=== PATIENT | male | born 1980 | race African-American/Black ===

== ENCOUNTER 2019-06-15 14:46 | Emergency (ER) | payer SELFPAY ==
--- NOTE | 2019-06-15 16:27 | ER Document Report ---
ED Medical Screen (RME) - General Chief Complaint: Alcohol Withdrawl Stated Complaint: DETOX ETOH Time Seen by Provider: 06/15/19 16:22 - HPI Notes: 06/15/19 16:23 39-year-old male to the emergency department with complaints of wanting alcohol detox. He states that he has been drinking for 20+ years. He states that he drinks 15 beers a day. He states he has had about 45 ounces today already. His last drink was 5 hours ago. He states that when he tries to detox he will have seizures. He states the last time he tried to detox was about a year and a half ago. He denies any tobacco use. He does smoke marijuana. He denies any other illicit drug use. He denies any chest pain, shortness of breath, tremors currently, fever, chills, nausea, vomiting. Reports chronic diarrhea and states that he has a cough. Denies SI, HI, or hallucinations. I have performed a medical screening exam on this patient and placed initial orders. Will await bed for patient and have mainside provider further manage and disposition. - Related Data Allergies/Adverse Reactions: lactose Allergy (Verified 06/15/19 14:51) Past Medical History - Social History Chew tobacco use (# tins/day): No Frequency of alcohol use: Heavy Drug Abuse: Marijuana Pulmonary Medical History: Reports: Hx Asthma, Hx COPD Renal/ Medical History: Denies: Hx Peritoneal Dialysis Physical Exam - Vital signs Vitals: Temp Pulse Resp BP Pulse Ox 98.4 F 77 16 135/82 H 95 06/15/19 15:00 06/15/19 15:00 06/15/19 15:00 06/15/19 15:00 06/15/19 15:00 Interpretation: Normal - General General appearance: Other - chronic ill appearing In distress: None Notes: NOT TREMULOUS. - Respiratory Respiratory status: No respiratory distress Chest status: Nontender Breath sounds: Normal Chest palpation: Normal - Cardiovascular Rhythm: Regular Heart sounds: Normal auscultation Murmur: No Course - Vital Signs Vital signs: Temp Pulse Resp BP Pulse Ox 98.4 F 77 16 135/82 H 95 06/15/19 15:00 06/15/19 15:00 06/15/19 15:00 06/15/19 15:00 06/15/19 15:00
[2019-06-15 17:06] LABS: ABSOLUTE EOSINOPHILS # (AUTO) 0.7 10^3/uL (0.0-0.6); ABSOLUTE LYMPHOCYTES (AUTO) 1.5 10^3/uL (0.5-4.7); ABSOLUTE MONOCYTES (AUTO) 0.6 10^3/uL (0.1-1.4); ABSOLUTE NEUT (AUTO) 3.6 10^3/uL (1.7-8.2); BASOPHILS % (AUTO) 0.6 % (0-2); EOSINOPHILS % (AUTO) 10.3 % (0-6); HEMATOCRIT 44.1 % (37.9-51.0); LYMPHOCYTES % (AUTO) 23.7 % (13-45); MEAN CORPUSCULAR HEMOGLOBIN 31.8 pg (27.0-33.4); MEAN CORPUSCULAR HGB CONC 33.9 g/dL (32.0-36.0); MEAN CORPUSCULAR VOLUME 94 fl (80-97); PLATELET COUNT 239 10^3/uL (150-450); RED CELL DISTRIBUTION WIDTH 13.5 % (11.5-14.0); SEGMENTED NEUTROPHILS % (AUTO) 56.4 % (42-78); TOTAL CELLS COUNTED % (AUTO) 100 %; WHITE BLOOD COUNT 6.3 10^3/uL (4.0-10.5)
--- NOTE | 2019-06-15 17:14 | RADIOLOGY REPORT (SQ) ---
EXAM DESCRIPTION: CHEST 2 VIEWS COMPLETED DATE/TIME: 06/15/2019 4:54 pm REASON FOR STUDY: chronic cough COMPARISON: None. NUMBER OF VIEWS: Two view. TECHNIQUE: Frontal and lateral radiographic views of the chest acquired. LIMITATIONS: None. FINDINGS: LUNGS AND PLEURA: No opacities, masses or pneumothorax. No pleural effusion. Attenuated bl ood vessels and flattened vinicius-diaphragms. MEDIASTINUM AND HILAR STRUCTURES: No masses. No contour abnormalities. HEART AND VASCULAR STRUCTURES: Heart normal in size and contour. No evidence for failure. BONES: Scoliosis convex right thoracolumbar. HARDWARE: None in the chest. OTHER: No other significant finding. IMPRESSION: COPD. NO ACUTE RADIOGRAPHIC FINDING IN THE CHEST. TECHNICAL DOCUMENTATION: JOB ID: [id number] [employer]- All Rights Reserved Reading location - IP/workstation name: [email or web address]
[2019-06-15 17:21] LABS: ALANINE AMINOTRANSFERASE 151 U/L (21-72); ALBUMIN 5.6 g/dL (3.5-5.0); ALCOHOL 197 mg/dL (NONE DETECTED); ALKALINE PHOSPHATASE 118 U/L (38-126); ANION GAP 16 (5-19); ASPARTATE AMINO TRANSFERASE 251 U/L (17-59); BILIRUBIN,DIRECT 0.3 mg/dL (0.0-0.4); BILIRUBIN,TOTAL 1.2 mg/dL (0.2-1.3); BLOOD UREA NITROGEN 5 mg/dL (7-20); CALCIUM 9.9 mg/dL (8.4-10.2); CARBON DIOXIDE 25 mmol/L (22-30); CHLORIDE 101 mmol/L (98-107); GLUCOSE 96 mg/dL (75-110); POTASSIUM 4.5 mmol/L (3.6-5.0)
--- NOTE | 2019-06-15 17:21 | ER Document Report ---
ED General - General Chief Complaint: Alcohol Withdrawl Stated Complaint: DETOX ETOH Time Seen by Provider: 06/15/19 16:22 TRAVEL OUTSIDE OF THE [place] IN LAST 30 DAYS: No - HPI Notes: Patient is a 39-year-old male with a history of alcohol abuse who presents per the direction of indicated family service for work-up to be placed in a detox facility. Patient states his last drink was earlier today. Patient states that when he has tried a detox in the past he has seizures. He typically drinks about 15 beers per day. He does smoke tobacco and marijuana. Denies any other IV drug abuse. Patient states that he is able to eat and drink without difficulty, but does have a decreased p.o. intake. He is urinating normally and having normal bowel movements although usually diarrhea for him without melena or hematochezia. No SI/HI or visual/auditory hallucinations. Denies any headache, fever, head injury, neck pain, changes in vision/speech/mentation/hearing, URI, sore throat, chest pain, palpitations, syncope, shortness of breath, wheeze, dyspnea, abdominal pain, nausea/vomiting, urinary retention, dysuria, hematuria, loss of control of bowel or bladder, numbness/tingling, saddle anesthesia, muscle paralysis/weakness, or rash. - Related Data Allergies/Adverse Reactions: lactose Allergy (Verified 06/15/19 14:51) Past Medical History - Social History Smoking Status: Current Some Day Smoker Chew tobacco use (# tins/day): No Frequency of alcohol use: Heavy Drug Abuse: Marijuana Family History: Reviewed & Not Pertinent Patient has suicidal ideation: No Patient has homicidal ideation: No Pulmonary Medical History: Reports: Hx Asthma, Hx COPD Renal/ Medical History: Denies: Hx Peritoneal Dialysis Review of Systems - Review of Systems -: Yes All other systems reviewed and negative Physical Exam - Vital signs Vitals: Temp Pulse Resp BP Pulse Ox 98.4 F 77 16 135/82 H 95 06/15/19 15:00 06/15/19 15:00 06/15/19 15:00 06/15/19 15:00 06/15/19 15:00 - Notes Notes: PHYSICAL EXAMINATION: GENERAL: Well-appearing, well-nourished and in no acute distress. A&Ox4. Answers questions appropriately. + smell of etoh HEAD: Atraumatic, normocephalic. Non-tender. EYES: Pupils equal round and reactive to light, extraocular movements intact, sclera anicteric, conjunctiva are normal. No nystagmus. ENT: EAC clear b/l. TM's intact b/l without erythema, fluid, or perforation. Nares patent and without discharge. oropharynx clear without exudates. No tonsilar hypertrophy or erythema. Moist mucous membranes. No sinus tenderness. NECK: Normal range of motion, supple without lymphadenopathy. No rigidity/meningismus. No midline tenderness. LUNGS: Breath sounds clear to auscultation bilaterally and equal. No wheezes rales or rhonchi. HEART: Regular rate and rhythm without murmurs, rubs, gallops. ABDOMEN: Soft, nontender, nondistended abdomen. No guarding, no rebound. Normal bowel sounds present. No CVA tenderness bilaterally. Musculoskeletal: Ext b/l: FROM to passive/active. Strength 5+/5. No deficits noted. No bony tenderness of extremities. Extremities: No cyanosis, clubbing, or edema b/l. Peripheral pulses 2+. Capillary refill less than 2 seconds. NEUROLOGICAL: GCS 15. Cranial nerves grossly intact. Normal speech, normal gait. Normal sensory, motor exams. PSYCH: Normal mood, normal affect. SKIN: Warm, Dry, normal turgor, no rashes or lesions noted. Course - Re-evaluation Re-evalutation: 06/15/19 17:37 I did speak with Mr. Villar from [facility] who states that he can go right back to the detox center after discharge from here. 06/15/19 18:23 Patient is an afebrile, well-hydrated, 39-year-old male who presents for detox labs and work-up/evaluation. Vitals are acceptable without significant tachycardia, tachypnea, or hypoxia. PE is otherwise unremarkable. Patient's abdomen is soft and nontender. Lungs are clear to auscultation bilaterally. NIH 0, GCS 15, Cranial nerves grossly intact. Patient is nontoxic-appearing is able to tolerate p.o. without difficulty. He does not appear to be in any acute withdrawal at this time. No further work-up warranted. See labs and imaging results. Low suspicion/risk for acute appendicitis, bowel obstruction, acute cholecystitis, perforated diverticulitis, incarcerated hernia, pancreatitis, perforated ulcer, peritonitis, sepsis, testicular torsion, or other systemic emergent condition at this time. Patient is aware that his condition can change from initial presentation and he needs to monitor symptoms closely and seek medical attention if any acute changes. Conservative measures otherwise for s ymptoms. Go directly to the detox facility. Return to the ED with any worsening/concerning symptoms otherwise as reviewed in discharge. Patient is in agreement. - Vital Signs Vital signs: Temp Pulse Resp BP Pulse Ox 98.4 F 77 16 135/82 H 95 06/15/19 15:00 06/15/19 15:00 06/15/19 15:00 06/15/19 15:00 06/15/19 15:00 - Laboratory Result Diagrams: 06/15/19 16:41 06/15/19 16:41 Laboratory results interpreted by me: 06/15/19 06/15/19 06/15/19 16:41 16:41 17:17 Eosinophils % 10.3 H Absolute Eosinophils 0.7 H BUN 5 L AST 251 H ALT 151 H Total Protein 9.0 H Albumin 5.6 H Salicylates < 1.0 L Acetaminophen < 10 L Discharge - Discharge Clinical Impression: Desire for detoxification Condition: Stable Disposition: HOME, SELF-CARE Additional Instructions: Take your results and go directly to the detox facility. Maintain adequate fluid and food intake Healthy diet/exercise Avoid alcohol Monitor for any worsening symptoms Make sure you are staying hydrated enough to urinate and have normal BM's Return to the ED with any worsening symptoms and/or development of fever, headache, chest pain, palpitations, syncope, shortness of breath, trouble breathing, abdominal pain, n/v/d, blood in stool/urine, weakness, visual/auditory hallucinations, suicidal or homicidal ideations, or other worsening symptoms that are concerning to you. Forms: Elevated Blood Pressure, Smoking Cessation Education Referrals: [facility] [Provider Group] - Follow up as needed
[2019-06-15 17:39] LABS: ACETAMINOPHEN < 10 ug/mL (10-30); SALICYLATE < 1.0 mg/dL (2.0-20.0)
[2019-06-15] MEDS ORDERED: ONDANSETRON 4 MG TAB.RAPDIS PO ONE (18:29)
[2019-06-15 18:57] VITALS: BP 135/80
--- NOTE | 2019-06-15 23:13 | EKG REPORT ---
SEVERITY:- BORDERLINE ECG - SINUS RHYTHM PROBABLE LEFT ATRIAL ABNORMALITY : Confirmed by: Jackson Hernandez 15-Jun-2019 23:13:07
== END 2019-06-15 18:56 | disposition home or self-care (01) ==
LOC: ER 14:46
DX: Z02.89 Encounter for other administrative examinations (principal); Z13.89 Encounter for screening for other disorder; F17.200 Nicotine dependence, unspecified, uncomplicated; F12.10 Cannabis abuse, uncomplicated; R05 Cough; K52.9 Noninfective gastroenteritis and colitis, unspecified; Z86.79 Personal history of other diseases of the circulatory system
CPT/HCPCS: 93005; 99285; 36415; 80307 ×3; 85025; 80053; 71046; 93010; S0119